=== PATIENT | male | born 1975 ===

== ENCOUNTER 2024-06-14 13:31 | Emergency (ER) | payer SELFPAY ==
[~2024-06-14] VITALS: Ht 162.6 cm; Wt 73.5 kg
[~2024-06-14 13:31] MED LIST: HYDACE5 PO
[2024-06-14] MEDS ORDERED: Acetaminophen 500 MG Tab PO ONE ×2 (14:20→17:25)
[2024-06-14] MEDS ORDERED: Ketorolac Tromethamine 30mg Vial IM ONE ×2 (14:20→17:25)
[2024-06-14] MEDS ORDERED: Cyclobenzaprine HCl 10 MG Tab PO ONE ×2 (14:25→17:25)
[2024-06-14] MEDS ORDERED: Dexamethasone Sod Phos 10 MG/ML 1ML VIAL IM ONE ×2 (14:25→17:25)
[2024-06-14] MEDS ORDERED: Lidocaine 4% 1 Patch TOP ONE (17:45)
[2024-06-14] MEDS ORDERED: ASPERFLEX1 EACH TOP (17:55)
[2024-06-14] MEDS ORDERED: Robaxin750 MG PO (17:55)
== END 2024-06-14 18:27 | disposition home or self-care (01) ==
LOC: ER 13:31
DX: M54.50 Low back pain, unspecified (principal); G89.29 Other chronic pain; F17.200 Nicotine dependence, unspecified, uncomplicated
CPT/HCPCS: 96372; 99282-25; A9270; J1100; J1885

== ENCOUNTER 2024-12-26 00:29 | Emergency (ER) | payer OTHER ==
[~2024-12-26] VITALS: Ht 162.6 cm; Wt 69.8 kg
[~2024-12-26 00:29] MED LIST changes: +ASPERFLEX1 EACH TOP; +Robaxin750 MG PO
[2024-12-26 02:22] LABS: BASOPHILS ABSOLUTE AUTO 0.05 K/mm3 (0.00-0.23); BASOPHILS PERCENT AUTO 1 % (0-2); EOSINOPHILS ABSOLUTE AUTO 0.12 K/mm3 (0.00-0.68); EOSINOPHILS PERCENT AUTO 1 % (0-6); Hematocrit 44.4 % (37.0-53.0); Hemoglobin 14.7 g/dL (13.5-17.5); IMMATURE GRAN ABSOLUTE AUTO 0.08 K/mm3 (0.00-0.10); IMMATURE GRAN PERCENT AUTO 1 % (0-1); LYMPHOCYTES ABSOLUTE AUTO 1.87 K/mm3 (0.84-5.20); LYMPHOCYTES PERCENT AUTO 18 % (21-46); MONOCYTES ABSOLUTE AUTO 0.81 K/mm3 (0.16-1.47); MONOCYTES PERCENT AUTO 8 % (4-13); Mean Corpuscular HGB Conc 33.1 g/dL (31.5-36.5); Mean Corpuscular Volume 96 fL (80-100); NEUTROPHILS ABSOLUTE AUTO 7.56 K/mm3 (1.96-9.15); NEUTROPHILS PERCENT AUTO 72 % (41-73); NRBC ABSOLUTE 0.00 K/mm3 (0.00-0.02); NRBC Auto 0.0 /100 WBC (0.0-0.2); Platelet Count 344 K/mm3 (150-400); RDW Coefficient Variation 13.0 % (11.7-14.2); RDW Standard Deviation 46.4 fL (35.1-46.3)
[2024-12-26 02:37] LABS: Alanine Aminotransfer (ALT/SGP 39.0 U/L (12-78); Albumin, Blood 4.0 g/dL (3.4-5.0); Albumin/Globulin Ratio 1.2 (0.8-1.8); Anion Gap 7.0 mmol/L (3-11); Aspartate Aminotrans (AST/SGOT 26.0 U/L (12-37); Bilirubin, Total 0.4 mg/dL (0.1-1.0); Blood Urea Nitrogen 14.0 mg/dL (8-24); CO2, Blood 28.0 mmol/L (21-32); Calcium, Blood 8.7 mg/dL (8.5-10.1); Chloride, Blood 107.0 mmol/L (98-108); Creatinine, Blood 0.74 mg/dL (0.60-1.20); Globulin, Blood 3.2 g/dL (2.2-4.0); Glucose, Blood 106.0 mg/dL (70-99); Potassium, Blood 3.8 mmol/L (3.5-5.5); Sodium, Blood 138.0 mmol/L (136-145); Total Protein, Blood 7.2 g/dL (6.4-8.2)
== END 2024-12-26 04:30 | disposition home or self-care (01) ==
LOC: ER 00:29
PROVIDERS: Student in an Organized Health Care Education/Training Program
DX: R55 Syncope and collapse (principal); F19.90 Other psychoactive substance use, unspecified, uncomplicated; F17.200 Nicotine dependence, unspecified, uncomplicated
CPT/HCPCS: 80053; 84484; 85025; 93005; 93010; 99284-25